=== PATIENT | male | born 1950 | race African-American/Black ===

== ENCOUNTER 2019-06-28 10:15 | Inpatient (IN) ==
[2019-06-28] MEDS ORDERED: NITROGLYCERIN SL 0.4 MG TABLET SL STA (10:43)
[2019-06-28] MEDS ORDERED: ASPIRIN 325 MG TABLET PO STA (10:43)
[2019-06-28] MEDS ORDERED: ENOXAPARIN 100 MG/ML SYRINGE SUBCUT STA (10:43)
[2019-06-28 11:23] LABS: Basophils % 0.9 % (0.0-0.8); Eosinophils # 0.1 10*3/uL (0.0-0.87); Eosinophils % 2.1 % (0.00-10.9); Hematocrit 40.7 VOL% (42.0-52.0); Hemoglobin 13.5 GM/DL (14.0-18.0); Immature Granulocytes % 0.5 %; Immature Granulocytes Absolute 0.02 #; Lymphocytes # 1.4 10*3/uL (1.4-4.0); Mean Corpuscular HGB Conc 33.2 GM/DL (32-36); Mean Corpuscular Volume 86.2 FL (87-102); Monocytes % 13.9 % (1.7-12.7); Neutrophils % 49.6 % (38.7-73.9); Platelet Count 163 T/CUMM (130-400); Red Blood Count 4.72 MC/CUMM (3.8-5.5); Red Cell Distribution Width 15.8 % (9.3-17.3); White Blood Count 4.2 T/CUMM (4-12)
[2019-06-28 11:45] LABS: Albumin 3.4 G/DL (3.4-5.0); Bilirubin,Total 1.2 MG/DL (0.2-1.0); Calcium 8.4 MG/DL (8.5-10.1); Osmolality,Calculated 282.1 MOS/KG (273-304); Total Protein 6.4 G/DL (6.4-8.3)
[2019-06-28] MEDS ORDERED: FUROSEMIDE 40 MG/4 ML VIAL IV STA (12:59)
[2019-06-28] MEDS ORDERED: ONDANSETRON 4 MG/2 ML VIAL IV PRN (15:11)
[2019-06-28 18:48] LABS: Troponin I 0.207 NG/ML (0.00-0.045)
[2019-06-28] MEDS: DICLOFENAC SODIUM 50 MG TABLET PO SCH (21:39)
[2019-06-28] MEDS: PREGABALIN 50 MG CAPSULE PO SCH (21:39)
[2019-06-29] MEDS: ACETAMINOPHEN 325 MG TABLET PO PRN (00:15)
[2019-06-29] MEDS: ALBUTEROL/IPRATROPIUM 3 ML NEB RESP TX PRN ×2 (04:00→19:54)
[2019-06-29 06:49] LABS: Basophils % 0.6 % (0.0-0.8); Eosinophils # 0.1 10*3/uL (0.0-0.87); Eosinophils % 2.3 % (0.00-10.9); Hematocrit 42.4 VOL% (42.0-52.0); Hemoglobin 13.8 GM/DL (14.0-18.0); Immature Granulocytes % 0.2 %; Immature Granulocytes Absolute 0.01 #; Lymphocytes # 2.2 10*3/uL (1.4-4.0); Lymphocytes % 44.8 % (21.2-54.2); Mean Corpuscular HGB Conc 32.5 GM/DL (32-36); Mean Corpuscular Volume 86.5 FL (87-102); Mean Platelet Volume 10.5 FL (9.6-12.0); Monocytes % 15.9 % (1.7-12.7); Neutrophils % 36.2 % (38.7-73.9); Platelet Count 173 T/CUMM (130-400); Red Cell Distribution Width 15.9 % (9.3-17.3); White Blood Count 4.8 T/CUMM (4-12)
[2019-06-29 07:15] LABS: Eosinophils 2 % (0-10); Hypochromasia 1+; Lymphocytes 47 % (20-55); Platelet Estimate Adequate; Segmented Neutrophils 37 % (50-85); Total Cells Counted 100
[2019-06-29 07:26] LABS: Calcium 9.2 MG/DL (8.5-10.1); Risk Ratio 4.73; Thyroid Stimulating Hormone 1.91 uIU/ml (0.358-3.74); VLDL CHOLESTEROL 23.8 MG/DL
[2019-06-29] MEDS: PREGABALIN 50 MG CAPSULE PO SCH ×2 (08:16→22:20)
[2019-06-29] MEDS: METOPROLOL SUCCINATE XL 50 MG TABLET PO SCH (08:16)
[2019-06-29] MEDS: NICOTINE 21 MG/24 HR PATCH TRANSDERM SCH (08:16)
[2019-06-29] MEDS: LISINOPRIL 20 MG TABLET PO SCH (08:16)
[2019-06-29] MEDS: PANTOPRAZOLE 40 MG TABLET PO SCH (08:16)
[2019-06-29] MEDS: ENOXAPARIN 30 MG/0.3 ML SYRINGE SUBCUT SCH (08:16)
[2019-06-29] MEDS: DICLOFENAC SODIUM 50 MG TABLET PO SCH ×2 (08:17→22:20)
[2019-06-29] MEDS: FUROSEMIDE 40 MG/4 ML VIAL IV SCH (08:19)
[2019-06-29 10:24] LABS: Apearance,Urine CLEAR (Clear); Bilirubin,Urine Negative (Negative); Blood, Urine Negative (Negative); Glucose,Urine (UA) Negative (Negative); Ketones,Urine Negative (Negative); Mucus,Urine Occasional /LPF (Occasional); Nitrite,Urine Negative (Negative); Protein,Urine Negative; RBC,Urine <1 /HPF (0-4); Squamous Epithelial Cell,Urine Occasional /HPF (0-10); Urine Color Yellow (Yellow); Urine Specific Gravity 1.009 (1.001-1.035); Urine Urobilinogen < 2.0 EU/DL (0.2-1.0); WBC,Urine 3 /HPF (0-6)
[2019-06-29] MEDS: POLYETHYLENE GLYCOL POWDER 17 GM PACK PO SCH (14:27)
[2019-06-29] MEDS: TEMAZEPAM 15 MG CAPSULE PO PRN (22:20)
[2019-06-29] MEDS: DOCUSATE SODIUM 100 MG CAPSULE PO SCH (22:22)
[2019-06-30 05:15] LABS: Basophils % 0.6 % (0.0-0.8); Eosinophils # 0.2 10*3/uL (0.0-0.87); Eosinophils % 3.3 % (0.00-10.9); Hematocrit 40.4 VOL% (42.0-52.0); Hemoglobin 13.1 GM/DL (14.0-18.0); Immature Granulocytes % 0.2 %; Immature Granulocytes Absolute 0.01 #; Lymphocytes # 2.3 10*3/uL (1.4-4.0); Lymphocytes % 46.5 % (21.2-54.2); Mean Corpuscular HGB Conc 32.4 GM/DL (32-36); Mean Corpuscular Volume 87.6 FL (87-102); Mean Platelet Volume 9.8 FL (9.6-12.0); Monocytes % 15.2 % (1.7-12.7); Neutrophils % 34.2 % (38.7-73.9); Platelet Count 169 T/CUMM (130-400); Red Blood Count 4.61 MC/CUMM (3.8-5.5); Red Cell Distribution Width 15.9 % (9.3-17.3); White Blood Count 4.9 T/CUMM (4-12)
[2019-06-30 05:42] LABS: Calcium 9.1 MG/DL (8.5-10.1); Osmolality,Calculated 290.6 MOS/KG (273-304)
[2019-06-30] MEDS: ACETAMINOPHEN 325 MG TABLET PO PRN ×3 (05:42→18:41)
[2019-06-30 05:47] LABS: Atypical Lymphocytes Few; Eosinophils 5 % (0-10); Hypochromasia 1+; Lymphocytes 46 % (20-55); Microcytosis Slight; Segmented Neutrophils 36 % (50-85); Total Cells Counted 100
[2019-06-30 05:48] LABS: Platelet Estimate Adequate
[2019-06-30] MEDS: POLYETHYLENE GLYCOL POWDER 17 GM PACK PO SCH (09:10)
[2019-06-30] MEDS: LISINOPRIL 20 MG TABLET PO SCH (09:11)
[2019-06-30] MEDS: METOPROLOL SUCCINATE XL 50 MG TABLET PO SCH (09:12)
[2019-06-30] MEDS: ENOXAPARIN 30 MG/0.3 ML SYRINGE SUBCUT SCH (09:12)
[2019-06-30] MEDS: DOCUSATE SODIUM 100 MG CAPSULE PO SCH ×2 (09:12→22:01)
[2019-06-30] MEDS: PANTOPRAZOLE 40 MG TABLET PO SCH (09:12)
[2019-06-30] MEDS: FUROSEMIDE 40 MG/4 ML VIAL IV SCH ×2 (09:12→22:02)
[2019-06-30] MEDS: PREGABALIN 50 MG CAPSULE PO SCH ×2 (09:12→22:02)
[2019-06-30] MEDS: NICOTINE 21 MG/24 HR PATCH TRANSDERM SCH (09:14)
[2019-06-30] MEDS: DICLOFENAC SODIUM 50 MG TABLET PO SCH ×2 (09:15→22:01)
[2019-06-30] MEDS: ALBUTEROL/IPRATROPIUM 3 ML NEB RESP TX PRN (11:30)
[2019-06-30] MEDS ORDERED: METOPROLOL SUCCINATE XL 50 MG TABLET PO ONE (16:26)
[2019-06-30] MEDS: ASPIRIN EC 81 MG TABLET PO SCH (16:37)
[2019-06-30] MEDS: ATORVASTATIN 40 MG TABLET PO SCH (22:02)
[2019-07-01 04:46] LABS: Basophils % 0.8 % (0.0-0.8); Eosinophils # 0.2 10*3/uL (0.0-0.87); Eosinophils % 3.7 % (0.00-10.9); Hemoglobin 13.6 GM/DL (14.0-18.0); Immature Granulocytes % 0.2 %; Immature Granulocytes Absolute 0.01 #; Lymphocytes # 2.2 10*3/uL (1.4-4.0); Lymphocytes % 43.5 % (21.2-54.2); Mean Corpuscular HGB Conc 32.4 GM/DL (32-36); Mean Corpuscular Volume 88.1 FL (87-102); Mean Platelet Volume 10.7 FL (9.6-12.0); Monocytes % 14.9 % (1.7-12.7); Neutrophils % 36.9 % (38.7-73.9); Platelet Count 191 T/CUMM (130-400); Red Blood Count 4.77 MC/CUMM (3.8-5.5); Red Cell Distribution Width 15.8 % (9.3-17.3); White Blood Count 5.1 T/CUMM (4-12)
[2019-07-01 05:10] LABS: Calcium 9.1 MG/DL (8.5-10.1); Osmolality,Calculated 288.8 MOS/KG (273-304)
[2019-07-01 05:11] LABS: Band Neutrophils 2 % (0-10); Eosinophils 2 % (0-10); Hypochromasia Slight; Lymphocytes 40 % (20-55); Platelet Estimate Normal; Polychromasia Few; Segmented Neutrophils 40 % (50-85); Total Cells Counted 100
[2019-07-01] MEDS: ACETAMINOPHEN 325 MG TABLET PO PRN ×2 (05:57→19:27)
[2019-07-01] MEDS: DOCUSATE SODIUM 100 MG CAPSULE PO SCH ×2 (08:47→20:31)
[2019-07-01] MEDS: ASPIRIN EC 81 MG TABLET PO SCH (08:47)
[2019-07-01] MEDS: PANTOPRAZOLE 40 MG TABLET PO SCH (08:47)
[2019-07-01] MEDS: LISINOPRIL 20 MG TABLET PO SCH (08:47)
[2019-07-01] MEDS: POLYETHYLENE GLYCOL POWDER 17 GM PACK PO SCH (08:48)
[2019-07-01] MEDS: ENOXAPARIN 40 MG/0.4 ML SYRINGE SUBCUT SCH (08:48)
[2019-07-01] MEDS: METOPROLOL SUCCINATE XL 100 MG TABLET PO SCH (08:48)
[2019-07-01] MEDS: PREGABALIN 50 MG CAPSULE PO SCH ×2 (08:48→20:31)
[2019-07-01] MEDS: FUROSEMIDE 40 MG/4 ML VIAL IV SCH (08:48)
[2019-07-01] MEDS: DICLOFENAC SODIUM 50 MG TABLET PO SCH ×2 (08:49→20:31)
[2019-07-01] MEDS: NICOTINE 21 MG/24 HR PATCH TRANSDERM SCH (08:49)
[2019-07-01] MEDS: FUROSEMIDE 40 MG TABLET PO SCH (16:49)
[2019-07-01] MEDS: CIPROFLOXACIN 500 MG TABLET PO SCH (20:31)
[2019-07-01] MEDS: ATORVASTATIN 40 MG TABLET PO SCH (20:31)
[2019-07-01] MEDS: TEMAZEPAM 15 MG CAPSULE PO PRN (21:33)
[2019-07-02] MEDS: ACETAMINOPHEN 325 MG TABLET PO PRN (03:00)
[2019-07-02 07:23] VITALS: BP 151/83
[2019-07-02] MEDS: CIPROFLOXACIN 500 MG TABLET PO SCH (09:01)
[2019-07-02] MEDS: DICLOFENAC SODIUM 50 MG TABLET PO SCH (09:01)
[2019-07-02] MEDS: ASPIRIN EC 81 MG TABLET PO SCH (09:01)
[2019-07-02] MEDS: METOPROLOL SUCCINATE XL 100 MG TABLET PO SCH (09:01)
[2019-07-02] MEDS: LISINOPRIL 20 MG TABLET PO SCH (09:01)
[2019-07-02] MEDS: PANTOPRAZOLE 40 MG TABLET PO SCH (09:02)
[2019-07-02] MEDS: POLYETHYLENE GLYCOL POWDER 17 GM PACK PO SCH (09:02)
[2019-07-02] MEDS: FUROSEMIDE 40 MG TABLET PO SCH (09:02)
[2019-07-02] MEDS: PREGABALIN 50 MG CAPSULE PO SCH (09:02)
[2019-07-02] MEDS: ENOXAPARIN 40 MG/0.4 ML SYRINGE SUBCUT SCH (09:02)
[2019-07-02] MEDS: DOCUSATE SODIUM 100 MG CAPSULE PO SCH (09:02)
[2019-07-02] MEDS: NICOTINE 21 MG/24 HR PATCH TRANSDERM SCH (09:06)
[2019-07-02] MEDS: ALBUTEROL/IPRATROPIUM 3 ML NEB RESP TX PRN (10:38)
== END 2019-07-02 11:40 | disposition home or self-care (01) | DRG 291 ==
LOC: N.ED 10:15 → SUATTDRO 15:11 → N.EDINP 15:11 → N.TELES 16:15
PROVIDERS: ADMIT Internal Medicine; ATTEND Internal Medicine